=== PATIENT | female | born 1990 | race American Indian/Alaskan Native ===

== ENCOUNTER 2017-06-06 14:35 | Emergency (ER) | payer OTHER ==
[2017-06-06 15:37] LABS: Basophils % (Auto) 0.3 % (0.0-1.8); Hematocrit 37.4 % (30.3-42.9); Hemoglobin 12.3 gm/dl (10.1-14.3); Lymphocytes # (Auto) 0.5 K/mm3 (1.2-5.4); Lymphocytes % (Auto) 8.8 % (13.4-35.0); Mean Corpuscular HGB Conc 33 % (30-34); Mean Corpuscular Hemoglobin 28 pg (28-32); Mean Corpuscular Volume 84 fl (79-97); Monocytes # (Auto) 0.5 K/mm3 (0.0-0.8); Monocytes % (Auto) 8.1 % (0.0-7.3); Platelet Count 253 K/mm3 (140-440); Red Blood Count 4.44 M/mm3 (3.65-5.03); Red Cell Distribution Width 13.4 % (13.2-15.2)
[2017-06-06 15:52] LABS: Alanine Aminotransferase 14 units/L (7-56); Albumin 3.9 g/dL (3.9-5); BUN/Creatinine Ratio 12; Blood Urea Nitrogen 11 mg/dL (7-17); Calcium 8.3 mg/dL (8.4-10.2); Hemolysis Index 6
[2017-06-06 16:26] LABS: Bilirubin,Urine NEG (Negative); Blood,Urine NEG (Negative); Color,Urine Yellow (Yellow); Mucus,Urine FEW /HPF; Protein,Urine <15 mg/dL mg/dL (Negative); WBC,Urine < 1.0 /HPF (0.0-6.0)
[2017-06-06 16:43] LABS: HCG Qualitative,Urine Negative (Negative)
[2017-06-06 20:14] LABS: Lipase 26 units/L (13-60)
[2017-06-06] MEDS ORDERED: ZOFRAN ODT PO ONE (21:04)
[2017-06-06] MEDS ORDERED: NORCO 7.5/325 PO ONE (21:04)
--- NOTE | 2017-06-06 21:05 | Emergency Department Report ---
HPI - General Chief Complaint: Abdominal Pain Time Seen by Provider: 06/06/17 20:54 - HPI HPI: 26-year-old -[place] female presents to the emergency room for evaluation. Patient reports that she was recently treated for URI and possible flulike symptoms about 3 weeks ago. She was sent home and now complains of abdominal pain. She reports that the pain is in her pelvic area and it feels crampy. Patient reports that the pelvic pain makes it hard for her to walk. Patient's had a IUD in for 4 years. She denies any vaginal discharge no vaginal bleeding she does admit to body aches and fever. Her last BM was Thursday which she reports was normal. She was discharged from the other hospital she was given no medication just recommended supportive care. She admits to nausea and vomiting all day yesterday. She reports she has not eaten today. Only med she takes albuterol for asthma. She has a primary care provider Bridger Garcia. ED Past Medical Hx - Past Medical History Previous Medical History?: Yes Hx Asthma: Yes Additional medical history: Vaginal dleivery x 1 12-04-2013 - Surgical History Past Surgical History?: Yes Additional Surgical History: 06-28-2018, IUD placed 05-11-2014 - Social History Smoking Status: Never Smoker Substance Use Type: Non Opiate Pain - Medications Home Medications: Home Medications Medication Instructions Recorded Confirmed Last Taken Type Ibuprofen 800 mg PO Q8H PRN #15 tablet 06/07/17 Unknown Rx Ondansetron [Zofran Odt] 4 mg PO Q8HR #6 tab.rapdis 06/07/17 Unknown Rx ED Review of Systems ROS: Stated complaint: STOMACH PAIN Other details as noted in HPI Constitutional: fever ENT: denies: throat pain, congestion Respiratory: cough Cardiovascular: denies: chest pain, palpitations Endocrine: no symptoms reported Gastrointestinal: abdominal pain, nausea, vomiting Genitourinary: denies: urgency, dysuria, discharge Musculoskeletal: back pain Skin: denies: rash, lesions Neurological: denies: headache, weakness, paresthesias Psychiatric: denies: anxiety, depression Hematological/Lymphatic: denies: easy bleeding, easy bruising Physical Exam - Physical Exam Vital Signs: Vital Signs 06/06/17 15:01 Temperature 100.4 F H Pulse Rate 112 H Respiratory 20 Rate Blood Pressure 154/75 O2 Sat by Pulse 95 Oximetry Physical Exam: GENERAL: Alert and oriented x3, no apparent distress, Normal Gait, atraumatic. HEAD: Head is normocephalic and a-traumatic. EYES: Extra ocular muscles are intact. Pupils are equal, round, and reactive to light and accommodation. EARS: symetrical, atraumatic, non tender, ear canal clear and moderate cerumen, tympanic membrance non inflamed. gross auditory nml bilaterally. NOSE: Nose symetrical, Nontender,Nares appeared normal. MOUTH:Mouth is well hydrated and without lesions. Tonsils nonerythematous or swollen, Uvula midline, Tongue not elevated. Mucous membranes are moist. Posterior pharynx clear, no exudate or lesions. Patent airways. NECK: Supple. Non edematous, No carotid bruits. No lymphadenopathy or thyromegaly. LUNGS: Symetrical with respiration, No wheezing, no rales or crackles, CTAB. HEART: S1, S2 present, regular rate and rhythm without murmur, no rubs, no gallops. ABDOMEN: No organomegaly was noted,Positive bowel sounds, soft, and non- distended. . Nontender to palpation on all Quadrants, NO CVA tenderness. Mild tenderness to the suprapubic area. BREAST: Symetrical, Supple bilaterally, No Masses, lumps, lesions, ulcerations. EXTREMITIES/MUSCULOSKELETAL: No cyanosis, clubbing, rash, lesions or edema. Full ROM bilaterally. UE/LE Pulses 2+ bilaterally. LE and UE 5+ strength bilaterally NEUROLOGIC: No focal Deficit, Cranial nerves II through XII are grossly intact. No loss of sensation, No facial droop, Negative rhomberg. PSYCHIATRIC: Mood is congruent with affect, denies suicidal or homicidal ideations. SKIN: Warm and dry, No lesions, No ulceration or induration present ED Course Vital Signs 06/06/17 15:01 Temperature 100.4 F H Pulse Rate 112 H Respiratory 20 Rate Blood Pressure 154/75 O2 Sat by Pulse 95 Oximetry ED Medical Decision Making - Lab Data Result diagrams: 06/06/17 15:12 06/06/17 15:12 - Medical Decision Making Patient has been evaluated by this provider fast track. Labs were ordered chest x-ray pending ordered amylase lipase urinalysis. Also ordered a pelvic ultrasound with transvaginal. Since patient has IUD has pelvic cramping and she reports it makes it difficult to walk. Patient's order Silex 7.5 mg as well as Zofran 8 mg by mouth. Critical care attestation.: If time is entered above; I have spent that time in minutes in the direct care of this critically ill patient, excluding procedure time. ED Disposition Clinical Impression: Pelvic pain Disposition: DC- TO HOME OR SELFCARE Is pt being admited?: No Does the pt Need Aspirin: No Condition: Stable Instructions: Abdominal Pain (ED), Chronic Pelvic Pain in Women (ED) Additional Instructions: Take medication as prescribed. Follow up with her primary care provider on Thursday. Her back to the ER if symptoms persist or gets worse before you're able to follow up with her PCP Prescriptions: Ibuprofen 800 mg PO Q8H PRN #15 tablet PRN Reason: Pain Ondansetron [Zofran Odt] 4 mg PO Q8HR #6 tab.rapdis Referrals: KIKI CASTANEDA MD [Primary Care Provider] - 3-5 Days Forms: Work/School Release Form(ED), Accompanied Note
--- NOTE | 2017-06-06 23:10 | Ultrasound Report ---
FINAL REPORT PROCEDURE: US TRANSVAGINAL TECHNIQUE: Real-time transvaginal sonography in multiple planes of the pelvis was performed with image documentation. This examination was performed without Doppler. Vascular abnormalities, including ovarian torsion, will not be detectable without Doppler evaluation. CPT 49153 HISTORY: pelvic pain IUD placed COMPARISON: No prior studies are available for comparison. FINDINGS: UTERUS Size: 10 x 5 x 5 cm. Endometrial thickness: An IUD is in place mm. Orientation: anteverted. Cervix: Normal. Fibroids/masses: None. RIGHT Ovary: Not visualized cm. Appearance: Not visualized. LEFT Ovary: 3.2 x 1.7 x 2.4 cm. Appearance: Normal. Pelvic fluid: None. Other: None. IMPRESSION: Unremarkable study with an IUD in place..
--- NOTE | 2017-06-06 23:11 | Ultrasound Report ---
FINAL REPORT PROCEDURE: US PELVIC COMPLETE TECHNIQUE: Real-time transabdominal sonography in multiple planes of pelvis was performed with image documentation. This examination was performed without Doppler. Vascular abnormalities, including ovarian torsion, will not be detectable without Doppler evaluation. CPT 04804 HISTORY: pelvic pain IUD placed COMPARISON: No prior studies are available for comparison. FINDINGS: UTERUS Size: 10 x 5 x 5 cm. Endometrial thickness: An IUD is in place mm. Orientation: anteverted. Cervix: Normal. Fibroids/masses: None. RIGHT Ovary: Not visualized cm. Appearance: Not visualized. LEFT Ovary: 3.2 x 1.7 x 2.4 cm. Appearance: Normal. Pelvic fluid: None. Other: None. IMPRESSION: Unremarkable study with an IUD in place..
--- NOTE | 2017-06-07 00:05 | XRay Report ---
FINAL REPORT PROCEDURE: XR CHEST ROUTINE 2V TECHNIQUE: PA and lateral chest radiographs were obtained. CPT 29123 HISTORY: persistant cough COMPARISON: No prior studies are available for comparison. FINDINGS: Heart: Normal. Mediastinum/Vessels: Normal. Lungs/Pleural space: Normal. Bony thorax: No acute osseous abnormality. Other: IMPRESSION: Normal examination.
[2017-06-07 06:12] VITALS: BP 149/74
== END 2017-06-07 00:34 | disposition home or self-care (01) ==
LOC: ED 14:35
DX: R10.2 Pelvic and perineal pain (principal); J45.909 Unspecified asthma, uncomplicated
CPT/HCPCS: 36415; 71046; 76830; 76856; 80053; 81001; 81025; 82150; 83690; 85025; Q0162